=== PATIENT | female | born 1970 | race Caucasian/White ===

== ENCOUNTER 2018-09-29 21:55 | Emergency (ER) | payer OTHER ==
[~2018-09-29] VITALS: Ht 175.3 cm; Wt 62.0 kg
[2018-09-29 22:06] VITALS: BP 146/95
[2018-09-29] MEDS ORDERED: TRAM50TA2 PO (22:22)
[2018-09-29] MEDS ORDERED: LEVO125T PO (22:22)
[2018-09-29] MEDS ORDERED: FOLI-17 PO (22:22)
[2018-09-29] MEDS ORDERED: VALA1000 PO (22:22)
[2018-09-29] MEDS ORDERED: THIA500T PO (22:22)
[2018-09-29] MEDS ORDERED: MAGNESIUM SULFATE 1 GM, THIAMINE 100 MG, FOLIC ACID 1 MG, MVI ADULT 10 ML in SODIUM CHL... IV ONE (22:30)
[2018-09-29] MEDS ORDERED: SODIUM CHLORIDE 0.9% 1,000ML IVBOLUS ONE (22:30)
[2018-09-29] MEDS ORDERED: DIAZEPAM 10 MG TABLET PO ONE (22:30)
[2018-09-29] MEDS ORDERED: SODIUM CHLORIDE FLUSH 10ML SYR IVF ONE (22:30)
[2018-09-29] MEDS ORDERED: ONDANSETRON 2MG/ML, 2ML IVPush ONE (22:30)
[2018-09-29] MEDS ORDERED: DIAZEPAM 5 MG TABLET ONE (22:31)
[2018-09-29] MEDS ORDERED: ONDANSETRON 2MG/ML, 2ML ONE (22:31)
--- NOTE | 2018-09-29 22:55 | NUR ---
pt arrived with hr of 170 and after iv and po med now with hr at 104. pt with sitter at bedside and is no longer shaking. pt reports she feels much improved.
[2018-09-29 23:08] LABS: ALANINE AMINOTRANSFERASE 50 U/L (12-78); ANION GAP 10 mmol/L (5-15); CALCIUM 9.2 mg/dL (8.5-10.1); CHLORIDE 111 mmol/L (98-107); CREATININE 1.02 mg/dL (0.55-1.02)
[2018-09-29 23:12] LABS: ALKALINE PHOSPHATASE 69 U/L (45-117); BILIRUBIN,TOTAL 0.5 mg/dL (0.2-1.0); TOTAL PROTEIN 7.5 g/dL (6.4-8.2)
--- NOTE | 2018-09-29 23:30 | NUR ---
PT WITH IF RUNNNING AND HR NOW DOWN TO 93. PT REPORS FEELING MUCH BETTER.
[2018-09-29 23:33] LABS: BASOPHILS # (AUTO) 0.01 x10^3/uL (0-0.1); BASOPHILS % (AUTO) 0 % (0-1); EOSINOPHILS # (AUTO) 0.17 x10^3/uL (0-0.4); EOSINOPHILS % (AUTO) 3 % (1-7); LYMPHOCYTES # (AUTO) 0.97 x10^3/uL (1-3.4); LYMPHOCYTES % (AUTO) 18 % (22-44); MD NO; MEAN CORPUSCULAR HEMOGLOBIN 34.5 pg (27.0-34.8); MEAN CORPUSCULAR HGB CONC 33.5 g/dL (32.4-35.8); MEAN PLATELET VOLUME 9.6 fL (7.4-10.4); MONOCYTES # (AUTO) 0.42 x10^3/uL (0.2-0.8); MONOCYTES % (AUTO) 8 % (2-9); NEUTROPHILS # (AUTO) 3.68 x10^3/uL (1.8-6.8); NEUTROPHILS % (AUTO) 70 % (42-75); PLATELET COUNT 118 x10^3/uL (130-400); RED BLOOD COUNT 3.52 x10^6/uL (3.82-5.3)
== END 2018-09-30 01:16 ==
LOC: ED 23:45
DX: F10.239 Alcohol dependence with withdrawal, unspecified (principal); R42 Dizziness and giddiness; E03.9 Hypothyroidism, unspecified
CPT/HCPCS: 36415; 80053; 80307; 84703; 85025; 93005; 96361; 96374; 99284; J2405; J7030